=== PATIENT | male | born 1995 | race Caucasian/White ===

== ENCOUNTER → 2022-12-25 | Outpatient (CLI) | payer OTHER, SELFPAY ==
--- NOTE | 2022-12-25 16:02 | RAD_ITS ---
INDICATION: crush inj EXAMINATION/TECHNIQUE: X-RAY - LEFT HAND XR Fingers 3 VIEWS COMPARISON: FINDINGS: SOFT TISSUES: There is soft tissue swelling digit. No radiopaque foreign body. BONES/JOINTS: There is a fracture involving the tuft of the distal phalanx of the fourth finger. Normal alignment. Preservation of the joint space.. No sclerotic or destructive changes observed. RAD/Finger(s) Min 2 Views IMPRESSION: There is a fracture involving the tuft of the distal phalanx of the fourth finger. Electronically Signed: Carl Kramer DO at 16:15 EDT ,
--- NOTE | 2022-12-25 16:26 | RAD_ITS ---
INDICATION: crush inj EXAMINATION/TECHNIQUE: X-RAY - LEFT HAND XR Fingers 3 VIEWS COMPARISON: December 25, 2022 at 16:10 hours FINDINGS: SOFT TISSUES: No soft tissue swelling or gas. No radiopaque foreign body. BONES/JOINTS: There is a probable nondisplaced fracture involving the tuft of the distal phalanx of the third finger.. Normal alignment. Preservation of the joint space.. No sclerotic or destructive changes observed. RAD/Finger(s) Min 2 Views IMPRESSION: There is a probable nondisplaced fracture involving the tuft of the distal phalanx of the third finger.. . Electronically Signed: Carl Kramer DO at 16:43 EDT Reading Location ID and State: [facility] / [place] Tel [phone], Service support ,
== END | disposition home or self-care (01) ==
PROVIDERS: Referring Provider Physician Assistant Surgical; Visit Provider Physician Assistant Surgical
DX: S67.193A Crushing injury of left middle finger, initial encounter (principal); S67.195A Crushing injury of left ring finger, initial encounter
CPT/HCPCS: 73140